=== PATIENT | male | born 1970 | race Caucasian/White ===

== ENCOUNTER → 2016-10-06 | Day surgery (SDC) | payer BC ==
[~2016-10-06] MED LIST: BACITRACIN IM FOR SOLN 50,000 UNIT VIAL ONE; BUPIVACAINE HCL PF 0.75% 30 ML VIAL ONE; BUPIVACAINE/EPINEPHRINE 0.5% PF 30 ML VIAL ONE; CLINDAMYCIN PHOS 600 MG/4 ML VIAL ONE; EPINEPHrine HCL (1:1000) 30 MG/30 ML VIAL ONE; KETOROLAC TROMETHAMINE 30 MG/ML (IVP) VIAL IV PUSH ONE; LACTATED RINGER'S 1000 ML INJ 1,000 ML ONE; LIDOCAINE 1.5%/EPINEPHrine 1:200,000 PF SOLN 30 ML AMP ONE; MEPERIDINE HCL 50 MG/ML VIAL ONE; MIDAZOLAM HCL 5 MG/ML VIAL (1 ML) ONE; ONDANSETRON HCL 4 MG/2 ML VIAL IV PUSH ONE; PROPOFOL 200 MG/20 ML AMP IV ONE; SODIUM CHLOR 0.9% 250 ML INJ 250 ML IV ONE; SODIUM CHLORIDE 0.9% 20 ML VIAL ONE; SODIUM CHLORIDE 0.9% INJ 100 ML IV ONE; VANCOMYCIN HCL 1000 MG VIAL ONE; ceFAZolin INJ 1,000 MG VIAL ONE
--- NOTE | 2016-10-07 08:28 | MP ---
cc: LULY ROSALES M.D. DATE OF SURGERY 10/06/2016 PREOPERATIVE DIAGNOSES Right knee anterior cruciate ligament tear. Right knee medial meniscus tear. POSTOPERATIVE DIAGNOSES Right knee anterior cruciate ligament tear. Right knee medial meniscus tear. PROCEDURE Right knee arthroscopic anterior cruciate ligament allograft reconstruction. Right knee arthroscopic partial medial meniscectomy. SURGEON Dr. Luly Rosales [employer]ARNESS [employer]ACER Gilbert Andrade PA-C ANESTHESIA General with a femoral nerve block. ESTIMATED BLOOD LOSS Less than 50 cc. TOURNIQUET TIME 0 minutes. COMPLICATIONS None. IMPLANTS USED Arthrex. JUSTIFICATION This patient is a 46-year-old male who sustained previous traumatic injury of the right knee. He has a complete disruption of the anterior cruciate ligament and persistent symptoms of progressive pain, swelling instability of the right knee. Clinical exam as well as MRI confirmed the above-named findings. The patient was counseled as to the risks, benefits and alternatives of above-named surgical procedure and did wish to proceed with surgery. PROCEDURE Written consent was obtained. The patient was identified by name, taken to the operating room, placed in the supine position on the operating room table. General anesthesia was administered as well as 900 mg of IV clindamycin and 1 gram of IV Vancomycin as HE DOES HAVE A PENICILLIN ALLERGY. The right thigh was carefully placed in a well-padded leg sanderson, the right lower extremity prepped and draped using isopropyl alcohol, Hibiclens solution and ChloraPrep solution. Standard medial and lateral parapatellar arthroscopic portals were established. 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 The medial compartment revealed a large complex unstable tear of the posterior horn and medial meniscus. 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 An arthroscopic bur followed by an arthroscopic shaver was introduced interrupted the medial compartment to perform a partial medial meniscectomy. The meniscal rim was probed and noted to be stable after meniscectomy. The shave was also used to perform a gentle chondroplasty of the medial femoral condyle. The intercondylar notch revealed complete destruction of the anterior cruciate ligament. The lateral compartment was relatively free of meniscal pathology and chondromalacia. The shaver was used to perform a debridement of the torn anterior cruciate ligament. An arthroscopic bur was used to perform a notchplasty. The posterior wall was well visualized. An Arthrex retro-cutting tibial guide was centered within the footprint of the [facility] ACL in the tibia. A guidepin was used to capture the 10.5-mm drill bit. The tibial tunnel as retro-cut 10.5 mm in diameter. The shaver was used to clean soft tissue and bone debris from within the knee joint. An Arthrex 6-mm [id number] medial portal guide was placed along the lateral femoral condyle. The knee was hyper-flexed and the guidepin was still exiting the lateral femoral condyle. A low-profile cannulated reamer was drilled to a depth of approximately 30 mm. This reamer was again used to clean soft tissue and bone debris from within the knee joint. On the back table, the posterior tibialis tendon allograft was thawed in antibiotic solution. The graft was fashioned to a full diameter of 10.5 mm. An Arthrex Tightrope was placed over the mid-portion of the graft. The sutures from the Tightrope were then shuttled from the tibial tunnel, exiting the femoral tunnel. The Tightrope anchor was then pulled from the tibial tunnel, through the femoral tunnel and did exit the cortex. The entire rope was then flipped to obtain purchase and fixation distally. At this point the graft was then pulled from the tibial tunnel into the femoral tunnel and well seated. At this point with the leg held in near-full extension, a guidewire was placed along the anterior border of the graft. An Arthrex 10 x 20-mm bioabsorbable interference screw was used to put fixation on the tibial side. An intraoperative Cristhian exam was performed which was negative. The graft was taken through a full range of motion with no evidence of impingement. At the conclusion of the surgical procedure, the arthroscopic portals were closed with 3-0 Prolene suture. The exiting graft in the tibial tunnel was removed and the tibial incision was closed with 3-0 Vicryl, followed by 3-0 Prolene. Sterile dressing applied. The patient tolerated the procedure well with no intraoperative complications noted. Gilbert Andrade, Physician Clinical Quality Assurance Specialist Certified, was present during the entire procedure to include patient positioning and the procedure itself. The medical necessity of a physician logistics assistant was indicated in this case due to the complexity of the procedure. He assisted in manipulation of the leg and also retraction of soft tissue structures and manipulation of the camera for the purposes of visualization. He assisted with preparation of the graft for reconstruction and also drilling of tunnels and implantation fixation devices for purposes of reconstruction. with drilling of tunnels and implantation of fixation devices for purposes of reconstruction MD NANCY Robb/SSB /2:57 PM /7:54 AM
== END | disposition home or self-care (01) ==
LOC: ESDC 11:36
PROVIDERS: ATTEND Orthopaedic Surgery Sports Medicine
DX: S83.511A Sprain of anterior cruciate ligament of right knee, initial encounter (principal); S83.231A Complex tear of medial meniscus, current injury, right knee, initial encounter
CPT/HCPCS: 01400; 01991; 29881; 29888; 64447; C1713; J0690; J1885; J2175; J2250; J2405; J3010; J3370; J7050; J7120; J0171